=== PATIENT | female | born 2000 | race American Indian/Alaskan Native ===

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

== ENCOUNTER 2021-06-05 19:01 | Emergency (ER) | payer MEDICAID ==
[2021-06-05] MEDS ORDERED: SODIUM CHLORIDE 0.9% 1000 ML 1,000 ML IV ONE (20:02)
[2021-06-05] MEDS ORDERED: ONDANSETRON 4 MG/2 ML INJ IV ONE (20:03)
--- NOTE | 2021-06-05 20:43 | Event Note ---
ED Screening Note Date of service: 06/05/21 Time: 20:43 ED Screening Note: 21-year-old -[place] female presents to the emergency room complaining of abdominal pain nausea and vomiting. Patient reports her last menstrual period is 06/04/2021. Patient denies any vaginal discharge. States that she had been drinking all night. States that she feels like she has alcohol poisoning. Patient states she usually just socially drinks. Denies any past medical history currently takes no meds on a daily basis and has no known drug allergies. This initial assessment/diagnostic orders/clinical plan/treatment(s) is/are subject to change based on patients health status, clinical progression and re- assessment by fellow clinical providers in the ED. Further treatment and workup at subsequent clinical providers discretion. Patient/guardian urged not to elope from the ED as their condition may be serious if not clinically assessed and managed. Initial orders include:
--- NOTE | 2021-06-05 20:54 | Emergency Department Report ---
HPI - General Chief Complaint: Alcohol Time Seen by Provider: 06/05/21 20:38 - HPI HPI: 21-year-old -[place] female presents to the emergency department with complaint of generalized abdominal pain, nausea and vomiting since the patient drank a large amount of alcohol last night. The patient says that she thinks she had alcohol poisoning and that this is happened 1 time in the past. She denies any fever, dysuria, vaginal bleeding or discharge, back pain. She has not taken anything for symptoms prior to presentation. She denies any other past medical history. She describes the abdominal pain as a sharp cramping intense pain, 10 out of 10. No recent travel or sick contacts at home. ED Past Medical Hx - Past Medical History Previous Medical History?: No - Surgical History Past Surgical History?: No - Social History Smoking Status: Never Smoker Substance Use Type: None - Medications Home Medications: Home Medications Medication Instructions Recorded Confirmed Last Taken Type Ondansetron [Zofran Odt] 4 mg PO Q8HR PRN #12 tab.rapdis 06/05/21 Unknown Rx ED Review of Systems ROS: Stated complaint: ALCOHOL Other details as noted in HPI Comment: All other systems reviewed and negative Constitutional: denies: chills, fever Eyes: denies: eye pain, vision change ENT: denies: ear pain, throat pain Respiratory: denies: cough, shortness of breath Cardiovascular: denies: chest pain, palpitations Gastrointestinal: abdominal pain, nausea, vomiting Genitourinary: denies: dysuria, discharge Musculoskeletal: denies: back pain, arthralgia Skin: denies: rash, lesions Neurological: denies: headache, weakness Physical Exam - Physical Exam Vital Signs: Vital Signs 06/05/21 19:04 Temperature 98.8 F Pulse Rate 73 Respiratory 22 Rate Blood Pressure 113/67 O2 Sat by Pulse 99 Oximetry Physical Exam: GENERAL: The patient is well-developed well-nourished. HENT: Normocephalic. Atraumatic. Patient has moist mucous membranes. EYES: Extraocular motions are intact. NECK: Supple. Trachea is midline. CHEST/LUNGS: Clear to auscultation. There is no respiratory distress noted. HEART/CARDIOVASCULAR: Regular. There is no tachycardia. There is no murmur. ABDOMEN: Abdomen is soft. Generalized abdominal tenderness palpation. No guarding. Patient has normal bowel sounds. There is no abdominal distention. SKIN: Skin is warm and dry. NEURO: The patient is awake, alert, and oriented. The patient is cooperative. Normal speech. MUSCULOSKELETAL: There is no tenderness or deformity. There is no limitation range of motion. ED Course Vital Signs 06/05/21 19:04 Temperature 98.8 F Pulse Rate 73 Respiratory 22 Rate Blood Pressure 113/67 O2 Sat by Pulse 99 Oximetry ED Medical Decision Making - Lab Data Result diagrams: 06/05/21 20:50 06/05/21 20:50 Lab Results 06/05/21 06/05/21 06/05/21 Range/Units 20:21 20:50 20:50 WBC 6.9 (4.5-11.0) K/mm3 RBC 4.33 (3.65-5.03) M/mm3 Hgb 12.7 (10.1-14.3) gm/dl Hct 38.7 (30.3-42.9) % MCV 89 (79-97) fl MCH 30 (28-32) pg MCHC 33 (30-34) % RDW 13.0 L (13.2-15.2) % Plt Count 299 (140-440) K/mm3 Add Manual Diff Complete Total Counted 100 Seg Neutrophils % Core Analyst Seg Neuts % (Manual) 91.0 H (40.0-70.0) % Lymphocytes % (Manual) 5.0 L (13.4-35.0) % Monocytes % (Manual) 4.0 (0.0-7.3) % Nucleated RBC % Not Reportable Seg Neutrophils # Man 6.3 (1.8-7.7) K/mm3 Band Neutrophils # 0.0 K/mm3 Lymphocytes # (Manual) 0.3 L (1.2-5.4) K/mm3 Abs React Lymphs (Man) 0.0 K/mm3 Monocytes # (Manual) 0.3 (0.0-0.8) K/mm3 Eosinophils # (Manual) 0.0 (0.0-0.4) K/mm3 Basophils # (Manual) 0.0 (0.0-0.1) K/mm3 Metamyelocytes # 0.0 K/mm3 Myelocytes # 0.0 K/mm3 Promyelocytes # 0.0 K/mm3 Blast Cells # 0.0 K/mm3 WBC Morphology Not Reportable Hypersegmented Neuts Not Reportable Hyposegmented Neuts Not Reportable Hypogranular Neuts Not Reportable Smudge Cells Not Reportable Toxic Granulation Not Reportable Toxic Vacuolation Not Reportable Dohle Bodies Not Reportable Pelger-Huet Anomaly Not Reportable Ramin Rods Not Reportable Platelet Estimate Not Reportable Clumped Platelets Not Reportable Plt Clumps, EDTA Not Reportable Large Platelets Not Reportable Giant Platelets Not Reportable Platelet Satelliting Not Reportable Plt Morphology Comment Not Reportable RBC Morphology Normal Dimorphic RBCs Not Reportable Polychromasia Not Reportable Hypochromasia Not Reportable Poikilocytosis Not Reportable Anisocytosis Not Reportable Microcytosis Not Reportable Macrocytosis Not Reportable Spherocytes Not Reportable Pappenheimer Bodies Not Reportable Sickle Cells Not Reportable Target Cells Not Reportable Tear Drop Cells Not Reportable Ovalocytes Not Reportable Helmet Cells Not Reportable Cardenas-Swifton Bodies Not Reportable [place] Rings Not Reportable Luis Cells Not Reportable Bite Cells Not Reportable Crenated Cell Not Reportable Elliptocytes Not Reportable Acanthocytes (Spur) Not Reportable Rouleaux Not Reportable Hemoglobin C Crystals Not Reportable Schistocytes Not Reportable Malaria parasites Not Reportable Nikolai Bodies Not Reportable Hem Pathologist Commnt No Sodium 140 (137-145) mmol/L Potassium 3.7 (3.6-5.0) mmol/L Chloride 104.5 (98-107) mmol/L Carbon Dioxide 19 L (22-30) mmol/L Anion Gap 20 mmol/L BUN 7 (7-17) mg/dL Creatinine 0.6 (0.6-1.2) mg/dL Estimated GFR > 60 ml/min BUN/Creatinine Ratio 12 % Glucose 111 H (65-100) mg/dL Calcium 9.9 (8.4-10.2) mg/dL Total Bilirubin 0.80 (0.1-1.2) mg/dL AST 36 (5-40) units/L ALT 31 (7-56) units/L Alkaline Phosphatase 63 (35-129) units/L Total Protein 7.7 (6.3-8.2) g/dL Albumin 4.9 (3.9-5) g/dL Albumin/Globulin Ratio 1.8 % Lipase (13-60) units/L HCG, Qual (Negative) Plasma/Serum Alcohol < 0.01 (0-0.07) % 06/05/21 06/05/21 Range/Units 20:50 20:50 WBC (4.5-11.0) K/mm3 RBC (3.65-5.03) M/mm3 Hgb (10.1-14.3) gm/dl Hct (30.3-42.9) % MCV (79-97) fl MCH (28-32) pg MCHC (30-34) % RDW (13.2-15.2) % Plt Count (140-440) K/mm3 Add Manual Diff Total Counted Seg Neutrophils % Seg Neuts % (Manual) (40.0-70.0) % Lymphocytes % (Manual) (13.4-35.0) % Monocytes % (Manual) (0.0-7.3) % Nucleated RBC % Seg Neutrophils # Man (1.8-7.7) K/mm3 Band Neutrophils # K/mm3 Lymphocytes # (Manual) (1.2-5.4) K/mm3 Abs React Lymphs (Man) K/mm3 Monocytes # (Manual) (0.0-0.8) K/mm3 Eosinophils # (Manual) (0.0-0.4) K/mm3 Basophils # (Manual) (0.0-0.1) K/mm3 Metamyelocytes # K/mm3 Myelocytes # K/mm3 Promyelocytes # K/mm3 Blast Cells # K/mm3 WBC Morphology Hypersegmented Neuts Hyposegmented Neuts Hypogranular Neuts Smudge Cells Toxic Granulation Toxic Vacuolation Dohle Bodies Pelger-Huet Anomaly Ramin Rods Platelet Estimate Clumped Platelets Plt Clumps, EDTA Large Platelets Giant Platelets Platelet Satelliting Plt Morphology Comment RBC Morphology Dimorphic RBCs Polychromasia Hypochromasia Poikilocytosis Anisocytosis Microcytosis Macrocytosis Spherocytes Pappenheimer Bodies Sickle Cells Target Cells Tear Drop Cells Ovalocytes Helmet Cells Cardenas-Swifton Bodies [place] Rings Luis Cells Bite Cells Crenated Cell Elliptocytes Acanthocytes (Spur) Rouleaux Hemoglobin C Crystals Schistocytes Malaria parasites Nikolai Bodies Hem Pathologist Commnt Sodium (137-145) mmol/L Potassium (3.6-5.0) mmol/L Chloride (98-107) mmol/L Carbon Dioxide (22-30) mmol/L Anion Gap mmol/L BUN (7-17) mg/dL Creatinine (0.6-1.2) mg/dL Estimated GFR ml/min BUN/Creatinine Ratio % Glucose (65-100) mg/dL Calcium (8.4-10.2) mg/dL Total Bilirubin (0.1-1.2) mg/dL AST (5-40) units/L ALT (7-56) units/L Alkaline Phosphatase (35-129) units/L Total Protein (6.3-8.2) g/dL Albumin (3.9-5) g/dL Albumin/Globulin Ratio % Lipase 13 (13-60) units/L HCG, Qual Negative (Negative) Plasma/Serum Alcohol (0-0.07) % - Radiology Data Radiology results: image reviewed interpreted by me: Abdominal x-ray shows nonspecific nonobstructive bowel gas. No free air. - Medical Decision Making This patient presents with abdominal pain, nausea and vomiting after drinking a large amount of alcohol last night. On examination there is some reproducible generalized abdominal tenderness to palpation. The abdomen is soft, nondistended and nontoxic in appearance. Labs have been unremarkable including CBC, metabolic panel, lipase, and the patient is not . An IV was placed and the patient was given IV fluid resuscitation and an antiemetic. Upon reevaluation she is feeling greatly improved. She was able to pass an oral challenge. Vital signs reassuring including being afebrile. For all these reasons patient appears safe for discharge home at this time. She has been given a prescription for Zofran ODT and encouraged to increase her oral rehydration. Critical Care Time: No Critical care attestation.: If time is entered above; I have spent that time in minutes in the direct care of this critically ill patient, excluding procedure time. ED Disposition Clinical Impression: Nausea and vomiting Qualifiers: Vomiting type: unspecified Qualified Code(s): R11.2 - Nausea with vomiting, unspecified Abdominal pain Qualifiers: Abdominal location: unspecified location Qualified Code(s): R10.9 - Unspecified abdominal pain Disposition: 01 HOME / SELF CARE / HOMELESS Is pt being admited?: No Condition: Stable Instructions: Abdominal Pain, Adult, Binge-Drinking Information, Adult, Nausea and Vomiting, Adult Additional Instructions: Please follow-up with a primary care physician in the next few days. I have given you a referral for a local primary care physician, Dr. Angel, and a primary care clinic, [facility]. Increase your oral rehydration. Return to the emergency department with any worsening of your symptoms, new or concerning symptoms not addressed during this current emergency department visit, or with any acute distress. Prescriptions: Ondansetron [Zofran Odt] 4 mg PO Q8HR PRN #12 tab.rapdis PRN Reason: Nausea Referrals: FILI ANGEL MD [Staff Physician] - 3-5 Days [facility] [Provider Group] - 3-5 Days Time of Disposition: 22:43
[2021-06-05 20:59] LABS: Hematocrit 38.7 % (30.3-42.9); Hemoglobin 12.7 gm/dl (10.1-14.3); Mean Corpuscular HGB Conc 33 % (30-34); Mean Corpuscular Volume 89 fl (79-97); Platelet Count 299 K/mm3 (140-440); Red Blood Count 4.33 M/mm3 (3.65-5.03)
[2021-06-05 21:23] LABS: Alanine Aminotransferase 31 units/L (7-56); Albumin 4.9 g/dL (3.9-5); Blood Urea Nitrogen 7 mg/dL (7-17); Calcium 9.9 mg/dL (8.4-10.2); Hemolysis Index 25
[2021-06-05 21:25] LABS: BUN/Creatinine Ratio 12
[2021-06-05 21:52] LABS: RBC Morphology Normal; Total Cells Counted 100
--- NOTE | 2021-06-05 22:03 | XRay Report ---
ABDOMEN 3 VIEW(S) INDICATION / CLINICAL INFORMATION: Abd pain. COMPARISON: None available. FINDINGS: TUBES / LINES: None. BOWEL GAS PATTERN: No significant abnormality. FREE AIR / EXTRALUMINAL GAS: None seen. ADDITIONAL FINDINGS: No significant additional findings. IMPRESSION: 1. No significant abnormality. Signer Name: Edmar Belcher MD Signed: 06/05/2021 9:59 PM Workstation Name: [id number]
[2021-06-05 23:09] VITALS: BP 112/76
== END 2021-06-05 22:00 | disposition home or self-care (01) ==
LOC: ED 19:01
DX: R11.2 Nausea with vomiting, unspecified (principal); R10.9 Unspecified abdominal pain
CPT/HCPCS: 36415; 74019; 80053; 83690; 84703; 85007; 85025; 96361; 96374; 99284; J2405; J7030; 80320; Q0162; G0480